=== PATIENT | female | born 2000 | race African-American/Black ===

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

== ENCOUNTER 2021-08-31 19:10 | Emergency (ER) | payer BC, OTHER ==
[2019-09-06 11:47] VITALS: BP 117/74
== END 2021-08-31 20:30 | disposition left against medical advice (07) ==
LOC: ER 19:10
DX: L08.89 Other specified local infections of the skin and subcutaneous tissue (principal); Z53.21 Procedure and treatment not carried out due to patient leaving prior to being seen by health care provider